=== PATIENT | female | born 1940 | race Caucasian/White ===

== ENCOUNTER → 2016-11-28 | Outpatient (CLI) | payer OTHER | LOC: RAD 16:27 | DX: M54.2 Cervicalgia (principal); M47.892 Other spondylosis, cervical region | CPT/HCPCS: 72040; 73030 ==

== ENCOUNTER → 2021-06-21 | Outpatient (CLI) | payer OTHER ==
[~2021-06-21] MED LIST: FEXMID7.5 MG PO; FIORINAL 50-321 EACH PO; KEFLEX500 MG PO; Voltaren Gel 1% TOP; ZOFRAN4 MG PO
== END ==
LOC: EXRD 12:48
DX: M81.0 Age-related osteoporosis without current pathological fracture (principal); M85.862 Other specified disorders of bone density and structure, left lower leg
CPT/HCPCS: 77080